=== PATIENT | male | born 1965 ===

== ENCOUNTER 2017-02-03 14:15 | Inpatient (IN) | payer OTHER ==
[2017-02-03 15:51] VITALS: BMI 28.3
[2017-02-03] MEDS ORDERED: Oxycodone/Acetaminophen 5/325 mg Tab PO PRN ×2 (21:13)
--- NOTE | 2017-02-03 21:23 | CP.PCM.HP ---
History of Present Illness - History of Present Illness History of Present Illness: CC: s/p CABG, CVA HPI: This is a 51 y/o male with MHx signicant for HTN, HLD, DM2, and now CAD/ CABG and CVA. Patient is transferred here from [facility] for rehab post CABG. Per chart from [facility] and [facility], patient had initially been admitted to [facility] on 01/22/17 with c/o chest pain. He was found to have elevated troponins and was transferred to the ICU with diagnosis of NSTEMI; he was then transferred to [facility] for further mgmt. He had cardiac cath on 01/24/17, which showed 2V CA and depressed LV function, he had a balloon pump inserted at that time and then on 01/26/2017, he had CABG. 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 Currently patient has no c/c. States pain is well-controlled. Denies CP/SOB; denies f/c/n/v/d. Denies fever, cough. ROS: 14 systems reviewed, negative other than HPI MHx: HTN, HLD, DM2, CAD/CABG and R MCA CVA SHx: L wrist surgery distant past, cardiac cath and then CABG as above; pancreatitis in distant past Allergies: Shrimp, NKDA Medications: as per medication list Social Hx: lives with family, smoker in the past, no significant EtOH Family Hx: [place] and CAD in father, brother with pancreatic Ca Surrogate: , info on chart Present on Admission - Present on Admission Any Indicators Present on Admission: No Past Patient History - Past Social History Smoking Status: Never Smoked - CARDIAC Hx Hypertension: Yes - MUSCULOSKELETAL/RHEUMATOLOGICAL Hx Falls: No - PSYCHIATRIC Hx Substance Use: No - SURGICAL HISTORY Hx Surgeries: No Meds Allergies/Adverse Reactions: Allergies Allergy/AdvReac Type Severity Reaction Status Date / Time shrimp Allergy Verified 01/22/17 09:42 Physical Exam - Constitutional Appears: No Acute Distress - Head Exam Head Exam: ATRAUMATIC, NORMOCEPHALIC - Eye Exam Eye Exam: EOMI, PERRL - ENT Exam ENT Exam: Mucous Membranes Moist - Neck Exam Neck exam: Positive for: Full Rom - Respiratory Exam Respiratory Exam: Clear to Auscultation Bilateral, NORMAL BREATHING PATTERN Additional comments: midline sternotomy scar - Cardiovascular Exam Cardiovascular Exam: REGULAR RHYTHM, +S1, +S2 - GI/Abdominal Exam GI & Abdominal Exam: Normal Bowel Sounds, Soft - Extremities Exam Extremities exam: Positive for: full ROM, normal inspection Additional comments: b/l LE with incisions for vein harvest; wounds c/d/i - Neurological Exam Neurological exam: Alert, CN II-XII Intact, Oriented x3 Additional comments: LUE with some weakness vs R, still 4/5 strength - Psychiatric Exam Psychiatric exam: Normal Affect, Normal Mood - Skin Skin Exam: Dry, Warm Assessment & Plan (1) CAD (coronary artery disease) Assessment and Plan: 51 y/o male admitted for rehab s/p NSTEMI and CABG, and a R CVA. 1) CAD/NSTEMI/s/p CABG -Continue ASA, Plavix -Continue Statin at 80 mg daily for 21 days, then switch to 40 mg -Cont metoprolol and amiodarone; d/c amio after 02/03 (tomorrow) -EKG for AM 2) HTN -- Metoprolol as above 3) DM2 -DM diet -Accucheck qid ACHS -Levemir 12 BID -SSI 4) DVT PPx -- SQH 5) Protonix for GI PPx presumably, re-eval need for this medication Status: Acute (2) S/P CABG (coronary artery bypass graft) Status: Acute (3) DM2 (diabetes mellitus, type 2) Status: Acute (4) DVT prophylaxis Status: Acute (5) HTN (hypertension) Status: Acute
[2017-02-03] MEDS ORDERED: Insulin Detemir 100 Units/ml Inj SC SCH (22:45)
[2017-02-03] MEDS: Insulin Lispro (humaLOG) 100 Units/ml Inj SC SCH (22:50)
[2017-02-04] MEDS: Albuterol-Ipratrop 3 mg / 0.5 (3 ml) UD IH SCH ×7 (04:36→23:21)
[2017-02-04] MEDS: Insulin Lispro (humaLOG) 100 Units/ml Inj SC SCH ×4 (06:37→21:44)
[2017-02-04 07:06] LABS: HEMATOCRIT 36.9 % (35.0-51.0); MEAN CELL VOLUME 86.7 fl (80.0-94.0); MEAN CORPUSCULAR HEMOGLOBIN 29.1 pg (27.0-31.0); MEAN CORPUSCULAR HGB CONC 33.6 g/dL (33.0-37.0)
[2017-02-04 07:10] LABS: BLOOD UREA NITROGEN 37 mg/dl (9-20); CALCIUM 8.9 mg/dL (8.4-10.2); CARBON DIOXIDE 22 mmol/L (22-30); CHLORIDE 107 mmol/L (98-107); GFR AFRICAN-AMERICAN > 60; GLUCOSE,RANDOM 136 mg/dL (75-110); POTASSIUM 4.1 MMOL/L (3.6-5.0); SODIUM 140 mmol/l (132-148)
[2017-02-04] MEDS: Insulin Detemir 100 Units/ml Inj SC SCH ×2 (09:16→21:58)
[2017-02-04] MEDS: Multivitamin With Minerals Tab PO SCH (09:18)
[2017-02-04] MEDS: Pantoprazole 40 mg EC Tab PO SCH (09:18)
--- NOTE | 2017-02-04 12:52 | CP.PCM.PN ---
Subjective - Date & Time of Evaluation Date of Evaluation: 02/04/17 Time of Evaluation: 11:30 - Subjective Subjective: Patient seen and examined . Sitting in chair in NAD. Felling well. Participated with PT. Denies any CP, SOB, palpitations.Hemodynamically stable, afebrile Objective - Vital Signs/Intake and Output Vital Signs (last 24 hours): Temp Pulse Resp BP Pulse Ox 96.6 F L 88 20 120/69 99 02/04/17 08:06 02/04/17 09:16 02/04/17 08:06 02/04/17 09:16 02/04/17 08:06 - Medications Medications: Current Medications Albuterol/Ipratropium (Duoneb 3 Mg/0.5 Mg (3 Ml) Ud) 3 ml IH RQ4 [facility] Last Admin: 02/04/17 04:36 Dose: 3 ml Aspirin (Ecotrin) 81 mg PO DAILY [facility] Last Admin: 02/04/17 09:16 Dose: 81 mg Atorvastatin Calcium (Lipitor) 80 mg PO HS [facility] Last Admin: 02/03/17 22:50 Dose: 80 mg Bisacodyl (Dulcolax) 10 mg RC DAILY PRN PRN Reason: Constipation Clopidogrel Bisulfate (Plavix) 75 mg PO DAILY [facility] Last Admin: 02/04/17 09:18 Dose: 75 mg Docusate Sodium (Colace) 100 mg PO BID [facility] Last Admin: 02/04/17 09:15 Dose: 100 mg Heparin Sodium (Porcine) (Heparin) 5,000 units SC Q8 [facility] PRN Reason: Protocol Last Admin: 02/04/17 06:38 Dose: 5,000 units Insulin Detemir (Levemir) 15 units SC Q12 [facility] Last Admin: 02/04/17 09:16 Dose: 15 units Insulin Human Lispro (Humalog) 0 units SC ACHS [facility] PRN Reason: Protocol Last Admin: 02/04/17 11:30 Dose: 3 units Metoprolol Tartrate (Lopressor) 25 mg PO Q12 [facility] Last Admin: 02/04/17 09:16 Dose: 25 mg Multivitamins/Minerals (Therapeutic-M Tab) 1 tab PO DAILY [facility] Last Admin: 02/04/17 09:18 Dose: 1 tab Oxycodone/Acetaminophen (Percocet 5/325 Mg Tab) 1 tab PO Q4 PRN PRN Reason: Pain, moderate (4-7) Stop: 02/06/17 21:14 Last Admin: 02/04/17 01:03 Dose: 1 tab Oxycodone/Acetaminophen (Percocet 5/325 Mg Tab) 2 tab PO Q4 PRN PRN Reason: Pain, severe (8-10) Stop: 02/06/17 21:14 Pantoprazole Sodium (Protonix Ec Tab) 40 mg PO DAILY [facility] Last Admin: 02/04/17 09:18 Dose: 40 mg - Labs Labs: 02/04/17 05:15 02/04/17 05:15 - Constitutional Appears: Non-toxic, No Acute Distress - Head Exam Head Exam: ATRAUMATIC, NORMAL INSPECTION, NORMOCEPHALIC - Eye Exam Eye Exam: EOMI, Normal appearance, PERRL Pupil Exam: NORMAL ACCOMODATION - ENT Exam ENT Exam: Mucous Membranes Moist, Normal Exam - Neck Exam Neck Exam: Full ROM, Normal Inspection - Respiratory Exam Respiratory Exam: Clear to Ausculation Bilateral, NORMAL BREATHING PATTERN. absent: Rales, Rhonchi, Wheezes - Cardiovascular Exam Cardiovascular Exam: REGULAR RHYTHM, RRR. absent: JVD - GI/Abdominal Exam GI & Abdominal Exam: Soft, Normal Bowel Sounds. absent: Distended, Guarding, Tenderness, Rebound - Rectal Exam Rectal Exam: Deferred - Extremities Exam Extremities Exam: Full ROM, Normal Capillary Refill, Normal Inspection. absent : Calf Tenderness, Pedal Edema - Back Exam Back Exam: NORMAL INSPECTION - Neurological Exam Neurological Exam: Alert, Awake, CN II-XII Intact, Oriented x3 - Psychiatric Exam Psychiatric exam: Normal Affect, Normal Mood - Skin Skin Exam: Dry, Intact, Normal Color, Warm Assessment and Plan - Assessment and Plan (Free Text) Assessment: 51 y/o male admitted for rehab s/p NSTEMI and CABG, and a R CVA. 1. CAD/NSTEMI/s/p CABG stable Continue ASA, Plavix Continue Statin at 80 mg daily for 21 days, then switch to 40 mg Cont metoprolol d/c amiodarone after 3 days as per CTS 2. HTN Metoprolol as above 3. DM2 DM diet Accucheck qid ACHS Levemir 12 BID SSI 4. DVT PPx SQ heparin 5. GI PPx protonix
--- NOTE | 2017-02-04 15:06 | CP.PCM.PN ---
Subjective - Date & Time of Evaluation Date of Evaluation: 02/04/17 Time of Evaluation: 08:30 - Subjective Subjective: no acute complaints at present Objective - Vital Signs/Intake and Output Vital Signs (last 24 hours): Temp Pulse Resp BP Pulse Ox 96.6 F L 88 20 120/69 99 02/04/17 08:06 02/04/17 09:16 02/04/17 08:06 02/04/17 09:16 02/04/17 08:06 - Medications Medications: Current Medications Albuterol/Ipratropium (Duoneb 3 Mg/0.5 Mg (3 Ml) Ud) 3 ml IH RQ4 [facility] Last Admin: 02/04/17 04:36 Dose: 3 ml Aspirin (Ecotrin) 81 mg PO DAILY [facility]S AT [facility] Last Admin: 02/04/17 09:16 Dose: 81 mg Atorvastatin Calcium (Lipitor) 80 mg PO HS [facility] 234 B[facility]S AT [facility] Last Admin: 02/03/17 22:50 Dose: 80 mg Bisacodyl (Dulcolax) 10 mg RC DAILY PRN PRN Reason: Constipation Clopidogrel Bisulfate (Plavix) 75 mg PO DAILY [facility] 234 BEDS AT [facility] Last Admin: 02/04/17 09:18 Dose: 75 mg Docusate Sodium (Colace) 100 mg PO BID [facility] 234 BEDS AT [facility] Last Admin: 02/04/17 09:15 Dose: 100 mg Heparin Sodium (Porcine) (Heparin) 5,000 units SC Q8 [facility] 234 BEDS AT [facility] PRN Reason: Protocol Last Admin: 02/04/17 06:38 Dose: 5,000 units Insulin Detemir (Levemir) 15 units SC Q12 [facility] 234 BEDS AT [facility] Last Admin: 02/04/17 09:16 Dose: 15 units Insulin Human Lispro (Humalog) 0 units SC ACHS [facility] 234 BEDS AT [facility] PRN Reason: Protocol Last Admin: 02/04/17 11:30 Dose: 3 units Metoprolol Tartrate (Lopressor) 25 mg PO Q12 [facility] 234 BEDS AT [facility] Last Admin: 02/04/17 09:16 Dose: 25 mg Multivitamins/Minerals (Therapeutic-M Tab) 1 tab PO DAILY [facility] 234 BEDS AT [facility] Last Admin: 02/04/17 09:18 Dose: 1 tab Oxycodone/Acetaminophen (Percocet 5/325 Mg Tab) 1 tab PO Q4 PRN PRN Reason: Pain, moderate (4-7) Stop: 02/06/17 21:14 Last Admin: 02/04/17 01:03 Dose: 1 tab Oxycodone/Acetaminophen (Percocet 5/325 Mg Tab) 2 tab PO Q4 PRN PRN Reason: Pain, severe (8-10) Stop: 02/06/17 21:14 Pantoprazole Sodium (Protonix Ec Tab) 40 mg PO DAILY [facility] Last Admin: 02/04/17 09:18 Dose: 40 mg - Labs Labs: 02/04/17 05:15 02/04/17 05:15 - Head Exam Head Exam: ATRAUMATIC, NORMAL INSPECTION, NORMOCEPHALIC - Eye Exam Eye Exam: EOMI, Normal appearance, PERRL Pupil Exam: NORMAL ACCOMODATION - ENT Exam ENT Exam: Mucous Membranes Moist, Normal Exam - Neck Exam Neck Exam: Full ROM, Normal Inspection - Respiratory Exam Respiratory Exam: NORMAL BREATHING PATTERN - Cardiovascular Exam Cardiovascular Exam: REGULAR RHYTHM - GI/Abdominal Exam GI & Abdominal Exam: Normal Bowel Sounds - Rectal Exam Rectal Exam: NORMAL INSPECTION - Exam External exam: NORMAL EXTERNAL EXAM - Extremities Exam Extremities Exam: Full ROM, Normal Capillary Refill - Back Exam Back Exam: NORMAL INSPECTION - Neurological Exam Neurological Exam: Alert, Awake Neuro motor strength exam: Left Upper Extremity: 3, Right Upper Extremity: 3, Left Lower Extremity: 3, Right Lower Extremity: 3 - Psychiatric Exam Psychiatric exam: Normal Affect, Normal Mood - Skin Skin Exam: Dry, Intact Assessment and Plan (1) CAD (coronary artery disease) Status: Acute (2) DM2 (diabetes mellitus, type 2) Status: Acute (3) DVT prophylaxis Status: Acute (4) HTN (hypertension) Status: Acute (5) S/P CABG (coronary artery bypass graft) Assessment & Plan: plan for pt, ot, rec therapy and speech therapy Status: Acute (6) Chest pain Status: Acute (7) Hypertension, uncontrolled Status: Acute (8) Non-ST elevation [place] (NSTEMI) Status: Acute
--- NOTE | 2017-02-04 15:12 | PCM.OPOC ---
Physiatry Overall Plan of Care - Overall Plan of Care Estimated Length of Stay in Weeks: 3 Rehab Impairment: Mobility, Gait, Cognition, Speech, Balance, Coordination Etiologic Diagnosis: Cerebrovascular Accident - Anticipated Interventions Physical Therapy:: Yes Occupational Therapy:: Yes Speech Therapy:: Yes Recreational Therapy:: Yes - Therapy Goals Bed Mobility: Independent Ambulation: Independent Functional Positional Changes:: Independent - Discharge Plan Identification of Barriers to Discharge: Home Situation Discharge Destination: Home
--- NOTE | 2017-02-04 15:29 | CP.PCM.CON ---
History of Present Illness - History of Present Illness History of Present Illness: 51 year old malecame to [facility] with left chest pain, NC, Cabg, STroke Review of Systems - Cardiovascular Cardiovascular: Chest Pain, Lightheadedness Past Patient History - Past Medical History & Family History Past Medical History?: Yes - Past Social History Smoking Status: Former Smoker - CARDIAC Hx Hypercholesterolemia: Yes Hx Hypertension: Yes Other/Comment: NSTEMI - ENDOCRINE/METABOLIC Hx Diabetes Mellitus Type 1: Yes - MUSCULOSKELETAL/RHEUMATOLOGICAL Hx Falls: No - GASTROINTESTINAL Hx Pancreatitis: Yes - PSYCHIATRIC Hx Substance Use: No - SURGICAL HISTORY Hx Surgeries: No Hx Cardiac Catheterization: Yes Hx Coronary Artery Bypass Graft: Yes Other/Comment: left wrist Sx - ANESTHESIA Hx Anesthesia: Yes Hx Anesthesia Reactions: No Meds Allergies/Adverse Reactions: Allergies Allergy/AdvReac Type Severity Reaction Status Date / Time shrimp Allergy RASH Verified 02/04/17 00:13 - Medications Medications: Current Medications Albuterol/Ipratropium (Duoneb 3 Mg/0.5 Mg (3 Ml) Ud) 3 ml IH RQ4 [facility] Last Admin: 02/04/17 04:36 Dose: 3 ml Aspirin (Ecotrin) 81 mg PO DAILY [facility] Last Admin: 02/04/17 09:16 Dose: 81 mg Atorvastatin Calcium (Lipitor) 80 mg PO HS [facility] Last Admin: 02/03/17 22:50 Dose: 80 mg Bisacodyl (Dulcolax) 10 mg RC DAILY PRN PRN Reason: Constipation Clopidogrel Bisulfate (Plavix) 75 mg PO DAILY [facility] Last Admin: 02/04/17 09:18 Dose: 75 mg Docusate Sodium (Colace) 100 mg PO BID [facility] Last Admin: 02/04/17 09:15 Dose: 100 mg Heparin Sodium (Porcine) (Heparin) 5,000 units SC Q8 [facility] PRN Reason: Protocol Last Admin: 02/04/17 06:38 Dose: 5,000 units Insulin Detemir (Levemir) 15 units SC Q12 [facility] Last Admin: 02/04/17 09:16 Dose: 15 units Insulin Human Lispro (Humalog) 0 units SC ACHS [facility] PRN Reason: Protocol Last Admin: 02/04/17 11:30 Dose: 3 units Metoprolol Tartrate (Lopressor) 25 mg PO Q12 [facility] Last Admin: 02/04/17 09:16 Dose: 25 mg Multivitamins/Minerals (Therapeutic-M Tab) 1 tab PO DAILY [facility] Last Admin: 02/04/17 09:18 Dose: 1 tab Oxycodone/Acetaminophen (Percocet 5/325 Mg Tab) 1 tab PO Q4 PRN PRN Reason: Pain, moderate (4-7) Stop: 02/06/17 21:14 Last Admin: 02/04/17 01:03 Dose: 1 tab Oxycodone/Acetaminophen (Percocet 5/325 Mg Tab) 2 tab PO Q4 PRN PRN Reason: Pain, severe (8-10) Stop: 02/06/17 21:14 Pantoprazole Sodium (Protonix Ec Tab) 40 mg PO DAILY [facility] Last Admin: 02/04/17 09:18 Dose: 40 mg Physical Exam - Head Exam Head Exam: ATRAUMATIC - Eye Exam Eye Exam: EOMI, Normal appearance, PERRL Pupil Exam: NORMAL ACCOMODATION - ENT Exam ENT Exam: Mucous Membranes Moist, Normal Exam - Neck Exam Neck exam: Positive for: Normal Inspection - Respiratory Exam Respiratory Exam: NORMAL BREATHING PATTERN - Cardiovascular Exam Cardiovascular Exam: REGULAR RHYTHM - GI/Abdominal Exam GI & Abdominal Exam: Normal Bowel Sounds - Rectal Exam Rectal Exam: NORMAL INSPECTION - Exam External exam: NORMAL EXTERNAL EXAM - Extremities Exam Extremities exam: Positive for: normal inspection - Back Exam Back exam: NORMAL INSPECTION - Neurological Exam Neurological exam: Alert - Psychiatric Exam Psychiatric exam: Normal Affect, Normal Mood Additional comments: with with generalized weakness, problem with strength, balance and coordination Results - Vital Signs Recent Vital Signs: Last Vital Signs Temp 96.6 F L 02/04/17 08:06 Pulse 88 02/04/17 09:16 Resp 20 02/04/17 08:06 BP 120/69 02/04/17 09:16 Pulse Ox 99 02/04/17 08:06 - Labs Result Diagrams: 02/04/17 05:15 02/04/17 05:15 Labs: Laboratory Results - last 24 hr 02/03/17 02/04/17 02/04/17 21:37 05:15 05:15 WBC 9.0 RBC 4.26 L Hgb 12.4 Hct 36.9 MCV 86.7 MCH 29.1 MCHC 33.6 RDW 14.0 Plt Count 356 Sodium 140 Potassium 4.1 Chloride 107 Carbon Dioxide 22 Anion Gap 15 BUN 37 H Creatinine 0.9 Est GFR ( Amer) > 60 Est GFR (Non-Af Amer) > 60 POC Glucose (mg/dL) 182 H Random Glucose 136 H Calcium 8.9 02/04/17 02/04/17 06:36 10:58 WBC RBC Hgb Hct MCV MCH MCHC RDW Plt Count Sodium Potassium Chloride Carbon Dioxide Anion Gap BUN Creatinine Est GFR ( Amer) Est GFR (Non-Af Amer) POC Glucose (mg/dL) 126 H 207 H Random Glucose Calcium Assessment & Plan (1) CAD (coronary artery disease) Status: Acute (2) DM2 (diabetes mellitus, type 2) Status: Acute (3) DVT prophylaxis Status: Acute (4) HTN (hypertension) Status: Acute (5) S/P CABG (coronary artery bypass graft) Assessment and Plan: also Diagnosis of stroke, plan for physical, occupational, rec, speech therapy for range of motion, strenghthening, transfers and gait training overall plan of care monitor skin, bowel, bladder Status: Acute (6) Chest pain Status: Acute (7) Hypertension, uncontrolled Status: Acute (8) Non-ST elevation NC (NSTEMI) Status: Acute
--- NOTE | 2017-02-04 17:41 | CARD ---
APPROVED REPORT EKG Measurement Heart [id number] <Conclusion> Normal sinus rhythm Moderate voltage criteria for LVH, may be normal variant Inferior infarct, age undetermined Anterior infarct, age undetermined ST & T wave abnormality, consider lateral ischemia Prolonged QT Abnormal ECG
[2017-02-05] MEDS: Albuterol-Ipratrop 3 mg / 0.5 (3 ml) UD IH SCH ×6 (04:25→23:33)
[2017-02-05] MEDS: Insulin Lispro (humaLOG) 100 Units/ml Inj SC SCH ×4 (07:03→22:27)
[2017-02-05] MEDS: Pantoprazole 40 mg EC Tab PO SCH (08:38)
[2017-02-05] MEDS: Multivitamin With Minerals Tab PO SCH (08:38)
[2017-02-05] MEDS: Insulin Detemir 100 Units/ml Inj SC SCH ×2 (08:39→22:05)
--- NOTE | 2017-02-05 21:24 | PN ---
DATE: PHYSIATRY PROGRESS NOTE SUBJECTIVE: The patient is a 51-year-old male admitted for acute inpatient rehab program. No acute complaints at present. PHYSICAL EXAMINATION: VITAL SIGNS: Stable. NECK: Supple. CHEST: Symmetrical. HEART: Sounds S1, S2. ABDOMEN: Area is benign. EXTREMITIES: No clubbing, cyanosis, or edema. MUSCULOSKELETAL: The patient's muscle strength, 3/5. NEUROLOGICAL: Also problems with balance, coordination, gait. IMPRESSION: Acute cerebrovascular accident, history of hypertension, myocardial infarction, diabetes. PLAN: For physical therapy, occupational therapy, recreational therapy, and speech therapy program. Work on coordination and balance. James Pierre MD
[2017-02-06] MEDS: Albuterol-Ipratrop 3 mg / 0.5 (3 ml) UD IH SCH ×6 (04:52→23:59)
[2017-02-06] MEDS: Insulin Lispro (humaLOG) 100 Units/ml Inj SC SCH ×3 (07:11→16:57)
[2017-02-06] MEDS: Insulin Detemir 100 Units/ml Inj SC SCH ×2 (08:56→21:47)
[2017-02-06] MEDS: Multivitamin With Minerals Tab PO SCH (08:58)
[2017-02-06] MEDS: Pantoprazole 40 mg EC Tab PO SCH (08:58)
[2017-02-07] MEDS: Albuterol-Ipratrop 3 mg / 0.5 (3 ml) UD IH SCH ×5 (04:13→19:10)
[2017-02-07] MEDS: Insulin Lispro (humaLOG) 100 Units/ml Inj SC SCH ×2 (07:34→15:58)
[2017-02-07] MEDS: Insulin Detemir 100 Units/ml Inj SC SCH ×3 (08:22→21:43)
[2017-02-07] MEDS: Multivitamin With Minerals Tab PO SCH (08:23)
[2017-02-07] MEDS: Pantoprazole 40 mg EC Tab PO SCH (08:23)
--- NOTE | 2017-02-07 12:07 | CP.PCM.PN ---
Subjective - Date & Time of Evaluation Date of Evaluation: 02/07/17 Time of Evaluation: 10:00 - Subjective Subjective: Patient was seen and examined at bedside. He is sitting in chair and is undergoing physical therapy. He is participating well. He has no complaints of chest pain, palpitations, or shortness of breath. The patient is hemodynamically stable and afebrile today. Objective - Vital Signs/Intake and Output Vital Signs (last 24 hours): Temp Pulse Resp BP Pulse Ox 97.2 F L 98 H 21 109/68 99 02/07/17 07:44 02/07/17 08:23 02/07/17 07:44 02/07/17 08:23 02/07/17 07:44 - Medications Medications: Current Medications Albuterol/Ipratropium (Duoneb 3 Mg/0.5 Mg (3 Ml) Ud) 3 ml IH RQ4 [facility] Last Admin: 02/07/17 11:29 Dose: 3 ml Amiodarone HCl (Cordarone) 200 mg PO DAILY [facility] Last Admin: 02/07/17 08:17 Dose: 200 mg Aspirin (Ecotrin) 81 mg PO DAILY [facility] Last Admin: 02/07/17 08:21 Dose: 81 mg Atorvastatin Calcium (Lipitor) 80 mg PO HS [facility] Last Admin: 02/06/17 21:31 Dose: 80 mg Bisacodyl (Dulcolax) 10 mg RC DAILY PRN PRN Reason: Constipation Clopidogrel Bisulfate (Plavix) 75 mg PO DAILY [facility] Last Admin: 02/07/17 08:23 Dose: 75 mg Docusate Sodium (Colace) 100 mg PO BID [facility] Last Admin: 02/07/17 08:17 Dose: 100 mg Heparin Sodium (Porcine) (Heparin) 5,000 units SC Q8 [facility] PRN Reason: Protocol Last Admin: 02/07/17 06:23 Dose: 5,000 units Insulin Detemir (Levemir) 15 units SC Q12 [facility] Last Admin: 02/07/17 08:22 Dose: 15 units Insulin Human Lispro (Humalog) 0 units SC 0630,1630 [facility] PRN Reason: Protocol Last Admin: 02/07/17 07:34 Dose: 2 units Metoprolol Tartrate (Lopressor) 25 mg PO Q12 [facility] Last Admin: 02/07/17 08:23 Dose: Not Given Multivitamins/Minerals (Therapeutic-M Tab) 1 tab PO DAILY [facility] Last Admin: 02/07/17 08:23 Dose: 1 tab Pantoprazole Sodium (Protonix Ec Tab) 40 mg PO DAILY [facility] Last Admin: 02/07/17 08:23 Dose: 40 mg - Labs Labs: 02/04/17 05:15 02/04/17 05:15 - Additional Findings Additional findings: Physical exam: Constitutional- cooperative, awake, alert. Sitting in chair, no apparent distress. Head- NCAT, PERRL Eye- PERRL, normal accommodation ENT- normal exam, MMM. Neck- normal inspection, supple, no JVD Respiratory- CTAB, no wheezes rales rhonchi Cardiovascular- RRR, +S1, +S2 no MRG GI/Abdominal- normal bowel sounds, soft, no mass, no hsm Skin- warm, dry Extremities Exam- normal capillary refill, normal inspection Neurological Exam- alert, stable gait Psych- normal mood, normal affect Assessment and Plan - Assessment and Plan (Free Text) Plan: Assessment and Plan Assessment: 51 y/o male admitted for rehab s/p NSTEMI and CABG, and a R CVA. 1. CAD/NSTEMI/s/p CABG stable Continue ASA, Plavix Continue Statin at 80 mg daily for 21 days total, then switch to 40 mg Continue metoprolol discontinued Amiodarone today as per recommendations by CTS 2. HTN Metoprolol as above 3. DM2 DM diet Accucheck qid ACHS Levemir 12 BID SSI 4. DVT PPx SQ heparin 5. GI PPx protonix
--- NOTE | 2017-02-07 14:35 | CP.PCM.PN ---
Subjective - Date & Time of Evaluation Date of Evaluation: 02/07/17 Time of Evaluation: 11:00 - Subjective Subjective: patinet with no complaints of any pain Objective - Vital Signs/Intake and Output Vital Signs (last 24 hours): Temp Pulse Resp BP Pulse Ox 97.2 F L 95 H 21 123/72 99 02/07/17 07:44 02/07/17 09:26 02/07/17 07:44 02/07/17 09:26 02/07/17 07:44 - Medications Medications: Current Medications Albuterol/Ipratropium (Duoneb 3 Mg/0.5 Mg (3 Ml) Ud) 3 ml IH RQ4 [facility] Last Admin: 02/07/17 11:29 Dose: 3 ml Aspirin (Ecotrin) 81 mg PO DAILY [facility] Last Admin: 02/07/17 08:21 Dose: 81 mg Atorvastatin Calcium (Lipitor) 80 mg PO HS [facility] Last Admin: 02/06/17 21:31 Dose: 80 mg Bisacodyl (Dulcolax) 10 mg RC DAILY PRN PRN Reason: Constipation Clopidogrel Bisulfate (Plavix) 75 mg PO DAILY [facility] Last Admin: 02/07/17 08:23 Dose: 75 mg Docusate Sodium (Colace) 100 mg PO BID [facility] Last Admin: 02/07/17 08:17 Dose: 100 mg Heparin Sodium (Porcine) (Heparin) 5,000 units SC Q8 [facility] PRN Reason: Protocol Last Admin: 02/07/17 06:23 Dose: 5,000 units Insulin Detemir (Levemir) 15 units SC Q12 [facility] Last Admin: 02/07/17 08:22 Dose: 15 units Insulin Human Lispro (Humalog) 0 units SC 0630,1630 [facility] PRN Reason: Protocol Last Admin: 02/07/17 07:34 Dose: 2 units Metoprolol Tartrate (Lopressor) 25 mg PO Q12 [facility] Last Admin: 02/07/17 08:23 Dose: Not Given Multivitamins/Minerals (Therapeutic-M Tab) 1 tab PO DAILY [facility] Last Admin: 02/07/17 08:23 Dose: 1 tab Pantoprazole Sodium (Protonix Ec Tab) 40 mg PO DAILY [facility] Last Admin: 02/07/17 08:23 Dose: 40 mg - Labs Labs: 02/04/17 05:15 02/04/17 05:15 - Head Exam Head Exam: ATRAUMATIC, NORMAL INSPECTION, NORMOCEPHALIC - Eye Exam Eye Exam: EOMI, Normal appearance, PERRL Pupil Exam: NORMAL ACCOMODATION - ENT Exam ENT Exam: Mucous Membranes Moist, Normal Exam - Neck Exam Neck Exam: Normal Inspection - Respiratory Exam Respiratory Exam: NORMAL BREATHING PATTERN - Cardiovascular Exam Cardiovascular Exam: REGULAR RHYTHM - GI/Abdominal Exam GI & Abdominal Exam: Normal Bowel Sounds - Rectal Exam Rectal Exam: NORMAL INSPECTION - Exam External exam: NORMAL EXTERNAL EXAM - Extremities Exam Extremities Exam: Full ROM, Normal Capillary Refill, Normal Inspection - Back Exam Back Exam: NORMAL INSPECTION - Neurological Exam Neurological Exam: Alert, Awake Neuro motor strength exam: Left Upper Extremity: 3, Right Upper Extremity: 3, Left Lower Extremity: 3, Right Lower Extremity: 3 - Psychiatric Exam Psychiatric exam: Normal Affect, Normal Mood - Skin Skin Exam: Dry, Intact Assessment and Plan (1) CAD (coronary artery disease) Status: Acute (2) DM2 (diabetes mellitus, type 2) Status: Acute (3) DVT prophylaxis Status: Acute (4) HTN (hypertension) Status: Acute (5) S/P CABG (coronary artery bypass graft) Status: Acute (6) Chest pain Status: Acute (7) Hypertension, uncontrolled Status: Acute (8) Non-ST elevation [place] (NSTEMI) Assessment & Plan: plan for pt, ot, rec therapy fo rteam conference monitor savanna and breathing PRN. Status: Acute
[2017-02-07] MEDS ORDERED: Oxycodone/Acetaminophen 5/325 mg Tab PO PRN ×2 (14:50)
[2017-02-08] MEDS: Albuterol-Ipratrop 3 mg / 0.5 (3 ml) UD IH SCH ×7 (05:08→23:46)
[2017-02-08] MEDS: Insulin Lispro (humaLOG) 100 Units/ml Inj SC SCH ×2 (06:42→21:38)
[2017-02-08] MEDS: Insulin Detemir 100 Units/ml Inj SC SCH ×2 (08:20→21:41)
[2017-02-08] MEDS: Pantoprazole 40 mg EC Tab PO SCH (08:21)
[2017-02-08] MEDS: Multivitamin With Minerals Tab PO SCH (08:21)
[2017-02-09] MEDS: Albuterol-Ipratrop 3 mg / 0.5 (3 ml) UD IH SCH ×6 (04:16→23:42)
[2017-02-09] MEDS: Insulin Lispro (humaLOG) 100 Units/ml Inj SC SCH ×2 (06:56→21:22)
[2017-02-09] MEDS: Insulin Detemir 100 Units/ml Inj SC SCH ×2 (08:25→21:29)
[2017-02-09] MEDS: Pantoprazole 40 mg EC Tab PO SCH (08:25)
[2017-02-09] MEDS: Multivitamin With Minerals Tab PO SCH (08:25)
--- NOTE | 2017-02-09 08:56 | PSY.TMCNF ---
Nursing - Vital Signs Vital Signs (Last 8 hours): Vital Signs 02/09/17 02/09/17 02/09/17 08:25 08:36 08:45 Temperature 97.8 F Pulse Rate 99 H 99 H 99 H Respiratory 19 Rate Blood Pressure 104/59 L 104/59 L 104/59 L O2 Sat by Pulse 99 Oximetry Pain: 0 - Precautions: Precautions: Fall Prevention, Cardiac/Pulmonary - Medications/Other Issues Comment: -Bilateral inner leg savanna is post-op day 14. -Percocet 1 or 2 tabs for pain. Pt has not complained of pain. - Consults Comment: Dr. [facility] - Physiatry - Skin Incision Site: mid chest incision line; bilateral inner leg Incision: Healing Well Incision Line Treatment: JILL. - Toileting Toileting: Contact Guard - Bladder Management Bladder Pattern: Normal Voiding Method: Urinal Bladder Management: Modified Independent - Bowel Management Bowel Pattern: Normal Bowel Management: Contact Guard - Transfers Transfers: Contact Guard - ADL's ADL's: Contact Guard - Pain Management Comments: -Percocet 1 or 2 tabs for pain. Pt has not complained of pain. - Patient/Family Teaching Comments: Safety precautions. Cardiac precautions. Medication Regimen. Wound care - Goals/Time Frame Comments: -As per neuro (Dr. Carrasquillo), keep SBP 130-140s. -Maintain safety and cardiac precautions. -Until next team conference or discharge. - Provider Provider: Dariana Hutchins RN Physical Therapy - Bed Mobility Bed Mobility: Verbal Cues, Contact Guard Comment: constant cues to adhere for spinal precautions - Transfers Sit to Stand: Supervision - Ambulation Level of Assistance: Supervision Distance (ft.): 250 Assistive Devices: Single point cane - Stair Negotiation Stairs: Level of Assistance: Supervision Number of Stairs: 2 Stairs: Assistive Devices: Left Handrail, Right Handrail - Standing Balance Static Stand: Supervision Dynamic Stand: Contact Guard Assist - Pain Pain (assessed during therapy session): 0 Comment: pt denies pain - Insight/Carryover Insight/Carryover: Fair - Patient/Family Education Comment: role of OT/rehab, sternal precautions, energy conservation, breathing techniques, compensatory strategies for ADLs and ADL txfers, DME - Assessment/Plan Assessment: Pt requires continued OT services to maximize independence with ADLs , IADLs and functional transfers in order to return safely home - Goals Timeframe: 2 weeks Goals: MOD I ADLs. MOD I ADL txfers. MOD I light IADLs - Provider License Number: [id number] Occupational Therapy - Arousal/Attention/Orientation Level of Consciousness: Awake, Alert - ADL/IADL Self Feeding: Modified Independent Grooming: Supervision, Set-up Help Dressing-Upper Extremity: Verbal Cues, Set-up Help, Minimal Assistance Dressing-Lower Extremity: Verbal Cues, Set-up Help, Minimal Assistance - Sitting Balance Static Sitting: Independent with upper extremity support Dynamic Sitting: Reaches across midline, Reaches out of base of support, Reaches within base of support, Requires supervision Comment: unsupported @ edge of bed - Transfers Wheelchair to Bed Transfers: Supervision, Verbal Cues, Set-up Help Toilet Transfers: Supervision, Verbal Cues, Set-up Help - Upper Extremity Status Right Upper Extremity Comment: ROM WFL, MMT 4+/5 Left Upper Extremity Comment: ROM WFL, MMT 4/5 - Pain Pain (assessed during therapy session): 0 Comment: pt denies pain - Insight/Carryover Insight/Carryover: Fair - Patient/Family Education Comment: role of OT/rehab, sternal precautions, energy conservation, breathing techniques, compensatory strategies for ADLs and ADL txfers, DME - Assessment/Plan Assessment: Pt requires continued OT services to maximize independence with ADLs , IADLs and functional transfers in order to return safely home - Goals Timeframe: 2 weeks Goals: MOD I ADLs. MOD I ADL txfers. MOD I light IADLs - Provider Therapist: Cristina Arthur License Number: [id number] Speech Therapy - Consult Information Patient on Program: Yes Medical Diagnosis: CVA Treatment Diagnosis: -mild cognitive deficits. -mild dysarthria - Assessment Problem Solving Impairment: Mild Memory Impairment: Mild Speech/Articulation Impairment: Mild - Plan Assessment: Pt requires continued OT services to maximize independence with ADLs , IADLs and functional transfers in order to return safely home - Provider Therapist: Hannah Jeff License Number: [id number] Recreational Therapy - Participation Participation: Monitors His/Her Own Leisure Time - Attendance Attendance: Daily - Activities Leisure Activities: Television - Socialization Level of Socialization: Initiates/interacts freely with care givers and peer - Assessment Assessment/Plan: Pt requires continued OT services to maximize independence with ADLs, IADLs and functional transfers in order to return safely home - Provider Therapist: Dorys Greco, [employer] #[id number] Nutrition - Current Diet Current Diet/ Supplement/ Feedings: Moderate consistent CHO low fat/low cholesterol diet - Appetite Percent Meal Consumed: 75-100% - Comments Comments: Safety precautions. Cardiac precautions. Medication Regimen. Wound care - Assessment/Goals/Time Frame Assessment/Goals/Time Frame: -Bilateral inner leg savanna is post-op day 14. - Percocet 1 or 2 tabs for pain. Pt has not complained of pain. - Provider Provider: Marilia Fleming RD Case Management - Discharge Plan Discharge Plan: Home with significant other/family Rehabilitation Plan - Treatment Plan Treatment Plan: Physical Therapy, Occupational Therapy, Speech, Dietary, Patient /Family Education - Recommendation Recommendation: Physical Therapy, Occupational Therapy, Speech, Dietary, Patient /Family Education - Discharge Plan Discharge to: Home
--- NOTE | 2017-02-09 12:08 | CP.PCM.PN ---
Subjective - Date & Time of Evaluation Date of Evaluation: 02/09/17 Time of Evaluation: 13:00 - Subjective Subjective: Patient seen and examined bedside. Feeling good. Participating with PT. Hemodynamically stable, afebrile. Objective - Vital Signs/Intake and Output Vital Signs (last 24 hours): Temp Pulse Resp BP Pulse Ox 97.8 F 99 H 19 104/59 L 99 02/09/17 08:45 02/09/17 08:45 02/09/17 08:45 02/09/17 08:45 02/09/17 08:45 - Medications Medications: Current Medications Albuterol/Ipratropium (Duoneb 3 Mg/0.5 Mg (3 Ml) Ud) 3 ml IH RQ4 [facility] Last Admin: 02/09/17 11:15 Dose: 3 ml Aspirin (Ecotrin) 81 mg PO DAILY [facility] Last Admin: 02/09/17 08:25 Dose: 81 mg Atorvastatin Calcium (Lipitor) 80 mg PO HS [facility] Last Admin: 02/08/17 21:32 Dose: 80 mg Bisacodyl (Dulcolax) 10 mg RC DAILY PRN PRN Reason: Constipation Clopidogrel Bisulfate (Plavix) 75 mg PO DAILY [facility] Last Admin: 02/09/17 08:25 Dose: 75 mg Docusate Sodium (Colace) 100 mg PO BID [facility] Last Admin: 02/09/17 08:25 Dose: 100 mg Heparin Sodium (Porcine) (Heparin) 5,000 units SC Q8 [facility] PRN Reason: Protocol Last Admin: 02/09/17 05:57 Dose: 5,000 units Insulin Detemir (Levemir) 15 units SC Q12 [facility] Last Admin: 02/09/17 08:25 Dose: 15 units Insulin Human Lispro (Humalog) 0 units SC 0630,2100 [facility] PRN Reason: Protocol Last Admin: 02/09/17 06:56 Dose: Not Given Metoprolol Tartrate (Lopressor) 25 mg PO Q12 [facility] Last Admin: 02/09/17 08:25 Dose: Not Given Multivitamins/Minerals (Therapeutic-M Tab) 1 tab PO DAILY [facility] Last Admin: 02/09/17 08:25 Dose: 1 tab Oxycodone/Acetaminophen (Percocet 5/325 Mg Tab) 1 tab PO Q4 PRN PRN Reason: Pain, moderate (4-7) Stop: 02/10/17 14:51 Oxycodone/Acetaminophen (Percocet 5/325 Mg Tab) 2 tab PO Q4 PRN PRN Reason: Pain, severe (8-10) Stop: 02/10/17 14:51 Pantoprazole Sodium (Protonix Ec Tab) 40 mg PO DAILY [facility] Last Admin: 02/09/17 08:25 Dose: 40 mg - Labs Labs: 02/04/17 05:15 02/04/17 05:15 - Constitutional Appears: Well, Non-toxic, No Acute Distress - Head Exam Head Exam: ATRAUMATIC, NORMAL INSPECTION, NORMOCEPHALIC - Eye Exam Eye Exam: EOMI, Normal appearance, PERRL Pupil Exam: NORMAL ACCOMODATION - ENT Exam ENT Exam: Mucous Membranes Moist, Normal Exam - Neck Exam Neck Exam: Full ROM, Normal Inspection - Respiratory Exam Respiratory Exam: Clear to Ausculation Bilateral, NORMAL BREATHING PATTERN. absent: Rales, Rhonchi, Wheezes - Cardiovascular Exam Cardiovascular Exam: REGULAR RHYTHM, RRR, +S1, +S2. absent: JVD Additional comments: midline chest surgical incision healing well - GI/Abdominal Exam GI & Abdominal Exam: Soft, Normal Bowel Sounds. absent: Distended, Tenderness, Rebound - Rectal Exam Rectal Exam: Deferred - Extremities Exam Extremities Exam: Normal Capillary Refill. absent: Calf Tenderness, Pedal Edema Additional comments: bilateral lower extremity upper medial part surgical incision with savanna in place , intact - Back Exam Back Exam: NORMAL INSPECTION - Neurological Exam Neurological Exam: Alert, Awake, CN II-XII Intact, Oriented x3 - Psychiatric Exam Psychiatric exam: Normal Affect, Normal Mood - Skin Skin Exam: Dry, Intact, Normal Color, Warm Assessment and Plan - Assessment and Plan (Free Text) Assessment: 51 y/o male admitted for rehab s/p NSTEMI and CABG, and R CVA. 1. CAD/NSTEMI/s/p CABG stable Continue ASA, Plavix,metoprolol Continue Statin at 80 mg daily for 21 days total, then switch to 40 mg discontinued Amiodarone as per recommendations by CTS 2. HTN Metoprolol as above 3. DM2 DM diet Accucheck qid ACHS Levemir 15 units SQ BID [facility] 4. CVA continue PT/OT ASa, statin, BP control 5. DVT PPx SQ heparin 6. GI PPx protonix
--- NOTE | 2017-02-09 12:19 | PN ---
DATE: PHYSIATRY PROGRESS NOTE SUBJECTIVE: Patient is feeling fine. No acute complaints at present. PHYSICAL EXAMINATION: VITAL SIGNS: Stable. NECK: Supple. CHEST: Symmetrical. HEART: Sounds S1 and S2. ABDOMEN: Area is benign. EXTREMITIES: No clubbing, cyanosis, or edema. IMPRESSION: Acute cerebrovascular accident, hypertension, diabetes; status post team conference. Discharge date for Tuesday. Discussed with the patient. [place] healing in both legs. Surgeon further contacted, patient to get the savanna removed on Tuesday at the surgeon's office. James MD Gabby
[2017-02-10] MEDS: Albuterol-Ipratrop 3 mg / 0.5 (3 ml) UD IH SCH ×6 (05:07→23:07)
[2017-02-10] MEDS: Insulin Lispro (humaLOG) 100 Units/ml Inj SC SCH ×2 (06:05→21:03)
[2017-02-10] MEDS: Insulin Detemir 100 Units/ml Inj SC SCH ×2 (08:46→21:15)
[2017-02-10] MEDS: Pantoprazole 40 mg EC Tab PO SCH (08:47)
[2017-02-10] MEDS: Multivitamin With Minerals Tab PO SCH (08:47)
[2017-02-11] MEDS: Albuterol-Ipratrop 3 mg / 0.5 (3 ml) UD IH SCH ×6 (04:48→23:50)
[2017-02-11] MEDS: Insulin Lispro (humaLOG) 100 Units/ml Inj SC SCH ×2 (06:21→21:25)
[2017-02-11] MEDS ORDERED: Oxycodone/Acetaminophen 5/325 mg Tab PO PRN ×2 (06:56)
[2017-02-11] MEDS: Multivitamin With Minerals Tab PO SCH (08:04)
[2017-02-11] MEDS: Pantoprazole 40 mg EC Tab PO SCH (08:04)
[2017-02-11] MEDS: Insulin Detemir 100 Units/ml Inj SC SCH ×2 (08:05→21:35)
--- NOTE | 2017-02-11 10:18 | CP.PCM.PN ---
Subjective - Date & Time of Evaluation Date of Evaluation: 02/11/17 Time of Evaluation: 10:18 - Subjective Subjective: patient seen and examined at bedside status post CABG secondary to an STEMI, course complicated by right MCA CVA. Patient is doing well, tolerating physical therapy. Denies chest pain or dyspnea at rest or on exertion. Hemodynamically stable, no acute distress. Objective - Vital Signs/Intake and Output Vital Signs (last 24 hours): Temp Pulse Resp BP Pulse Ox 98.1 F 59 L 20 103/59 L 98 02/11/17 08:01 02/11/17 08:04 02/11/17 08:01 02/11/17 08:04 02/11/17 08:01 Physical exam: Constitutional- cooperative, awake, alert. Head- NCAT, PERRL Eye- PERRL, normal accommodation ENT- normal exam, MMM. Neck- normal inspection, supple, no JVD Respiratory- CTAB, no wheezes rales rhonchi Cardiovascular- RRR, +S1, +S2 no MRG GI/Abdominal- normal bowel sounds, soft, no mass, no hsm Skin- warm, dry Extremities Exam- normal capillary refill, normal inspection Neurological Exam- alert, stable gait Psych- normal mood, normal affect - Medications Medications: Current Medications Albuterol/Ipratropium (Duoneb 3 Mg/0.5 Mg (3 Ml) Ud) 3 ml IH RQ4 [facility] Last Admin: 02/11/17 07:33 Dose: Not Given Aspirin (Ecotrin) 81 mg PO DAILY [facility] Last Admin: 02/11/17 08:05 Dose: 81 mg Atorvastatin Calcium (Lipitor) 80 mg PO HS [facility] Last Admin: 02/10/17 21:02 Dose: 80 mg Bisacodyl (Dulcolax) 10 mg RC DAILY PRN PRN Reason: Constipation Clopidogrel Bisulfate (Plavix) 75 mg PO DAILY [facility] Last Admin: 02/11/17 08:04 Dose: 75 mg Docusate Sodium (Colace) 100 mg PO BID [facility] Last Admin: 02/11/17 08:05 Dose: 100 mg Heparin Sodium (Porcine) (Heparin) 5,000 units SC Q8 [facility] PRN Reason: Protocol Last Admin: 02/11/17 06:19 Dose: 5,000 units Insulin Detemir (Levemir) 15 units SC Q12 [facility] Last Admin: 02/11/17 08:05 Dose: 15 units Insulin Human Lispro (Humalog) 0 units SC 0630,2100 [facility] PRN Reason: Protocol Last Admin: 02/11/17 06:21 Dose: Not Given Metoprolol Tartrate (Lopressor) 25 mg PO Q12 [facility] Last Admin: 02/11/17 08:04 Dose: Not Given Multivitamins/Minerals (Therapeutic-M Tab) 1 tab PO DAILY [facility] Last Admin: 02/11/17 08:04 Dose: 1 tab Oxycodone/Acetaminophen (Percocet 5/325 Mg Tab) 2 tab PO Q4 PRN PRN Reason: Pain, severe (8-10) Stop: 02/14/17 06:57 Oxycodone/Acetaminophen (Percocet 5/325 Mg Tab) 1 tab PO Q4 PRN PRN Reason: Pain, moderate (4-7) Stop: 02/14/17 06:57 Pantoprazole Sodium (Protonix Ec Tab) 40 mg PO DAILY [facility] Last Admin: 02/11/17 08:04 Dose: 40 mg - Labs Labs: 02/04/17 05:15 02/04/17 05:15 Assessment and Plan - Assessment and Plan (Free Text) Plan: 51 y/o male with MHx signicant for HTN, HLD, DM2, and now CAD/CABG and CVA. Patient is transferred here from [facility] for rehab post CABG. Per chart from [facility] and [facility], patient had initially been admitted to [facility] on with c/o chest pain. He was found to have elevated troponins and was transferred to the ICU with diagnosis of NSTEMI; he was then transferred to [facility] for further mgmt. He had cardiac cath on 01/24/17, which showed 2V CA and depressed LV function, he had a balloon pump inserted at that time and then on 01/26/2017, he had CABG. 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 Patient admitted to acute rehab for further rehab needs for s/p CABG, NSTEMI, s/ p CVA 2/2 course complication. CAD/NSTEMI/s/p CABG stable Continue ASA, Plavix, metoprolol Continue Statin at 80 mg daily for 21 days total, then switch to 40 mg (DOA: , change date 02/24/17) discontinued Amiodarone as per recommendations by CTS CVA of [facility] continue PT/OT ASA, statin, BP control HTN Metoprolol as above DM2 DM diet Accucheck qid ACHS Levemir 15 units SQ BID [facility]SI DVT PPx SQ heparin GI PPx protonix to be discontinued on discharge
[2017-02-12] MEDS: Albuterol-Ipratrop 3 mg / 0.5 (3 ml) UD IH SCH ×6 (04:58→23:19)
[2017-02-12] MEDS: Insulin Lispro (humaLOG) 100 Units/ml Inj SC SCH ×2 (06:05→21:06)
[2017-02-12 07:39] LABS: HEMATOCRIT 35.4 % (35.0-51.0); MEAN CELL VOLUME 87.2 fl (80.0-94.0); MEAN CORPUSCULAR HEMOGLOBIN 28.8 pg (27.0-31.0); MEAN CORPUSCULAR HGB CONC 33.1 g/dL (33.0-37.0); RED CELL DISTRIBUTION WIDTH 14.7 % (11.5-14.5); WHITE BLOOD COUNT 6.4 K/uL (4.8-10.8)
[2017-02-12 08:53] LABS: BLOOD UREA NITROGEN 18 mg/dl (9-20); CALCIUM 9.1 mg/dL (8.4-10.2); CARBON DIOXIDE 27 mmol/L (22-30); CHLORIDE 102 mmol/L (98-107); GFR AFRICAN-AMERICAN > 60; GLUCOSE,RANDOM 117 mg/dL (75-110); POTASSIUM 4.1 MMOL/L (3.6-5.0); SODIUM 138 mmol/l (132-148)
[2017-02-12] MEDS: Insulin Detemir 100 Units/ml Inj SC SCH ×2 (09:01→21:08)
[2017-02-12] MEDS: Pantoprazole 40 mg EC Tab PO SCH (09:02)
[2017-02-12] MEDS: Multivitamin With Minerals Tab PO SCH (09:02)
--- NOTE | 2017-02-12 12:18 | CP.PCM.PN ---
Subjective - Date & Time of Evaluation Date of Evaluation: 02/11/17 Time of Evaluation: 20:00 - Subjective Subjective: no acute complaints at present Objective - Vital Signs/Intake and Output Vital Signs (last 24 hours): Temp Pulse Resp BP Pulse Ox 97.5 F L 89 20 101/60 100 02/12/17 07:50 02/12/17 09:01 02/12/17 07:50 02/12/17 09:01 02/12/17 07:50 - Medications Medications: Current Medications Albuterol/Ipratropium (Duoneb 3 Mg/0.5 Mg (3 Ml) Ud) 3 ml IH RQ4 [facility] Last Admin: 02/12/17 11:19 Dose: 3 ml Aspirin (Ecotrin) 81 mg PO DAILY [facility] Last Admin: 02/12/17 09:01 Dose: 81 mg Atorvastatin Calcium (Lipitor) 80 mg PO HS [facility] Last Admin: 02/11/17 21:28 Dose: 80 mg Bisacodyl (Dulcolax) 10 mg RC DAILY PRN PRN Reason: Constipation Clopidogrel Bisulfate (Plavix) 75 mg PO DAILY [facility] Last Admin: 02/12/17 09:02 Dose: 75 mg Docusate Sodium (Colace) 100 mg PO BID [facility] Last Admin: 02/12/17 09:00 Dose: 100 mg Heparin Sodium (Porcine) (Heparin) 5,000 units SC Q8 [facility] PRN Reason: Protocol Last Admin: 02/12/17 06:03 Dose: 5,000 units Insulin Detemir (Levemir) 15 units SC Q12 [facility] Last Admin: 02/12/17 09:01 Dose: 15 units Insulin Human Lispro (Humalog) 0 units SC 0630,2100 [facility] PRN Reason: Protocol Last Admin: 02/12/17 06:05 Dose: Not Given Metoprolol Tartrate (Lopressor) 25 mg PO Q12 [facility] Last Admin: 02/12/17 09:01 Dose: Not Given Multivitamins/Minerals (Therapeutic-M Tab) 1 tab PO DAILY [facility] Last Admin: 02/12/17 09:02 Dose: 1 tab Pantoprazole Sodium (Protonix Ec Tab) 40 mg PO DAILY [facility] Last Admin: 02/12/17 09:02 Dose: 40 mg - Labs Labs: 02/12/17 05:30 02/12/17 05:30 - Head Exam Head Exam: ATRAUMATIC, NORMAL INSPECTION, NORMOCEPHALIC - Eye Exam Eye Exam: EOMI, Normal appearance Pupil Exam: NORMAL ACCOMODATION, PERRL - ENT Exam ENT Exam: Mucous Membranes Moist, Normal Exam - Neck Exam Neck Exam: Normal Inspection - Respiratory Exam Respiratory Exam: Clear to Ausculation Bilateral, NORMAL BREATHING PATTERN - Cardiovascular Exam Cardiovascular Exam: REGULAR RHYTHM - GI/Abdominal Exam GI & Abdominal Exam: Normal Bowel Sounds - Rectal Exam Rectal Exam: NORMAL INSPECTION - Exam External exam: NORMAL EXTERNAL EXAM - Extremities Exam Extremities Exam: Full ROM, Normal Capillary Refill, Normal Inspection - Back Exam Back Exam: NORMAL INSPECTION - Neurological Exam Neurological Exam: Alert, Awake Neuro motor strength exam: Left Upper Extremity: 3, Right Upper Extremity: 4, Left Lower Extremity: 3, Right Lower Extremity: 4 Additional comments: incisional area of leg healing - Psychiatric Exam Psychiatric exam: Normal Affect, Normal Mood - Skin Skin Exam: Dry, Normal Color Assessment and Plan (1) CAD (coronary artery disease) Status: Acute (2) DM2 (diabetes mellitus, type 2) Status: Acute (3) DVT prophylaxis Status: Acute (4) HTN (hypertension) Status: Acute (5) S/P CABG (coronary artery bypass graft) Assessment & Plan: plan to continue with physical, occupational, rec and speech therapy Monitor the incisional area of the legs Monitor pain Status: Acute (6) Chest pain Status: Acute (7) Hypertension, uncontrolled Status: Acute (8) Non-ST elevation [place] (NSTEMI) Status: Acute
[2017-02-13] MEDS: Albuterol-Ipratrop 3 mg / 0.5 (3 ml) UD IH SCH ×6 (04:48→23:57)
[2017-02-13] MEDS: Insulin Lispro (humaLOG) 100 Units/ml Inj SC SCH ×2 (06:53→21:34)
[2017-02-13] MEDS: Multivitamin With Minerals Tab PO SCH (08:40)
[2017-02-13] MEDS: Insulin Detemir 100 Units/ml Inj SC SCH ×2 (08:40→21:35)
[2017-02-13] MEDS: Pantoprazole 40 mg EC Tab PO SCH (08:40)
[2017-02-13 20:10] VITALS: RESP 20
[2017-02-14] MEDS: Albuterol-Ipratrop 3 mg / 0.5 (3 ml) UD IH SCH ×6 (04:27→23:05)
[2017-02-14] MEDS: Insulin Lispro (humaLOG) 100 Units/ml Inj SC SCH ×2 (06:54→22:06)
[2017-02-14] MEDS: Multivitamin With Minerals Tab PO SCH (08:24)
[2017-02-14] MEDS: Pantoprazole 40 mg EC Tab PO SCH (08:24)
[2017-02-14] MEDS: Insulin Detemir 100 Units/ml Inj SC SCH ×2 (08:26→22:05)
[2017-02-14 10:03] VITALS: O2SAT 100
[2017-02-14] MEDS ORDERED: Pneumococcal 23-Valent Vaccine IM ONE (10:43)
[2017-02-14] MEDS ORDERED: Influenza Vaccine 18yr & older 0.5 ML/45 MCG SYR IM ONE (10:43)
[2017-02-14 20:53] VITALS: TEMP 97.3
[2017-02-15] MEDS: Albuterol-Ipratrop 3 mg / 0.5 (3 ml) UD IH SCH ×2 (04:31→08:10)
[2017-02-15] MEDS: Insulin Lispro (humaLOG) 100 Units/ml Inj SC SCH (06:12)
[2017-02-15] MEDS: Multivitamin With Minerals Tab PO SCH (08:21)
[2017-02-15] MEDS: Pantoprazole 40 mg EC Tab PO SCH (08:22)
[2017-02-15 08:23] VITALS: BP 100/65
[2017-02-15] MEDS: Insulin Detemir 100 Units/ml Inj SC SCH (08:23)
[2017-02-15 11:19] VITALS: PULSE 98
--- NOTE | 2017-02-15 13:36 | PN ---
DATE: 02/15/2017 PHYSIATRY PROGRESS NOTE Note dated for 9:00 a.m., date is 02/15/2017. SUBJECTIVE: The patient is feeling fine. No acute complaints at present. PHYSICAL EXAMINATION: VITAL SIGNS: Vitals are stable. NECK: Supple. CHEST: Symmetrical. HEART: Sounds S1 and S2. ABDOMEN: Abdominal area is benign. EXTREMITIES: No clubbing, cyanosis or edema. IMPRESSION: For the patient is the patient with generalized weakness, gait difficulty, deconditioning. PLAN: The patient plan for physical and occupational therapy. Full range of motion, strengthening, transfers, ambulation and gait training. The patient for discharge today. Further services after discharge. The patient to have the medications ordered for the patient. Follow up with the medical physicians after discharge. The patient's diagnosis was acute CVA, hypertension, NSTEMI, gait difficulty, status post intubation, generalized weakness, status post CABG, status post savanna. The patient also to follow up with a surgeon for removal of the savanna in the leg. The patient for discharge today. James Pierre MD
--- NOTE | 2017-02-15 14:52 | CP.PCM.DIS ---
Provider - Provider Date of Admission: 02/03/17 20:29 Attending physician: Theresa Gray MD Primary care physician: none Consults: PT/OT Time Spent in preparation of Discharge (in minutes): 10 Hospital Course - Lab Results Lab Results: Most Recent Lab Values WBC 6.4 K/uL (4.8-10.8) 02/12/17 05:30 RBC 4.06 Mil/uL (4.40-5.90) L 02/12/17 05:30 Hgb 11.7 g/dL (12.0-18.0) L 02/12/17 05:30 Hct 35.4 % (35.0-51.0) 02/12/17 05:30 MCV 87.2 fl (80.0-94.0) 02/12/17 05:30 MCH 28.8 pg (27.0-31.0) 02/12/17 05:30 MCHC 33.1 g/dL (33.0-37.0) 02/12/17 05:30 RDW 14.7 % (11.5-14.5) H 02/12/17 05:30 Plt Count 337 K/uL (130-400) 02/12/17 05:30 Sodium 138 mmol/l (132-148) 02/12/17 05:30 Potassium 4.1 MMOL/L (3.6-5.0) 02/12/17 05:30 Chloride 102 mmol/L (98-107) 02/12/17 05:30 Carbon Dioxide 27 mmol/L (22-30) 02/12/17 05:30 Anion Gap 13 (10-20) 02/12/17 05:30 BUN 18 mg/dl (9-20) 02/12/17 05:30 Creatinine 0.8 mg/dl (0.8-1.5) 02/12/17 05:30 Est GFR ( Amer) > 60 02/12/17 05:30 Est GFR (Non-Af Amer) > 60 02/12/17 05:30 POC Glucose (mg/dL) 131 mg/dL (65-110) H 02/15/17 06:07 Random Glucose 117 mg/dL (75-110) H 02/12/17 05:30 Calcium 9.1 mg/dL (8.4-10.2) 02/12/17 05:30 - Hospital Course Hospital Course: 51 y/o male admitted for rehab s/p NSTEMI and CABG, and R CVA.Patient participated well with PT . Will discharge home today Patient to follow up with his cardiothoracic surgeon 1. CAD/NSTEMI/s/p CABG stable Continue ASA, Plavix,metoprolol Continue Statin at 80 mg daily for 21 days total, then switch to 40 mg discontinued Amiodarone as per recommendations by CTS 2. HTN Metoprolol as above 3. DM2 DM diet Accucheck qid ACHS Levemir 15 units SQ BID SSI 4. CVA continue PT/OT ASa, statin, BP control 5. DVT PPx SQ heparin 6. GI PPx protonix Discharge Exam - Head Exam Head Exam: ATRAUMATIC, NORMAL INSPECTION, NORMOCEPHALIC - Eye Exam Eye Exam: PERRL Pupil Exam: NORMAL ACCOMODATION - ENT Exam ENT Exam: Mucous Membranes Moist, Normal Exam - Neck Exam Neck exam: Full Rom, Normal Inspection - Respiratory Exam Respiratory Exam: Clear to PA & Lateral, NORMAL BREATHING PATTERN. absent: Rales, Rhonchi, Wheezes - Cardiovascular Exam Cardiovascular Exam: REGULAR RHYTHM, RRR, +S1, +S2. absent: JVD - GI/Abdominal Exam GI & Abdominal Exam: Normal Bowel Sounds, Soft. absent: Distended, Guarding, Rebound, Tenderness - Rectal Exam Rectal Exam: Deferred - Extremities Exam Extremities exam: normal capillary refill, normal inspection, pedal pulses present - Back Exam Back exam: NORMAL INSPECTION - Neurological Exam Neurological exam: Alert, CN II-XII Intact, Oriented x3, Reflexes Normal - Psychiatric Exam Psychiatric exam: Normal Affect, Normal Mood - Skin Skin Exam: Dry, Intact, Normal Color, Warm Discharge Plan - Discharge Medications Prescriptions: Albuterol/Ipratropium [Duoneb 3 mg/0.5 mg (3 ml) UD] 3 ml IH Q4 #30 neb Aspirin [Ecotrin] 81 mg PO DAILY #30 tabec Atorvastatin [Lipitor] 80 mg PO HS #30 tab Bisacodyl [Dulcolax] 10 mg RC DAILY PRN #30 supp.rect PRN Reason: Constipation Clopidogrel [Plavix] 75 mg PO DAILY #30 tab Docusate [Colace] 100 mg PO BID #60 cap Glimepiride [Amaryl] 4 mg PO DAILY #30 tablet Metoprolol Tartrate [Lopressor] 25 mg PO Q12 #60 tab Multivitamin [Daily Lkaeshia] 1 tab PO DAILY #30 tablet - Follow Up Plan Condition: GOOD Disposition: HOME/ ROUTINE Patient education suggested?: Yes Instructions: Metoprolol (By mouth), Aspirin (By mouth), Laxative, Stool Softeners (By mouth), Multivitamins, Adult Formula (By mouth), Glimepiride (By mouth), Atorvastatin (By mouth), Ipratropium/Albuterol (By breathing), Clopidogrel (By mouth), Laxatives, Stimulant (Suppository) (Into the rectum), Diabetes Mellitus Type 2 in Adults (DC), Stroke (DC), Coronary Artery Bypass Graft (DC) Additional Instructions: FOLLOW UP WITH PCP AND NEUROLOGY IN ONE WEEK. RETURN TO ER IF CONDITION WORSENS.
== END 2017-02-15 10:30 | disposition home or self-care (01) | DRG 949 ==
PROVIDERS: ADMIT Internal Medicine; ATTEND Internal Medicine
PROC: F07Z9FZ Gait Training/Functional Ambulation Treatment using Assistive, Adaptive, Supportive or Protective Equipment (ICD-10-PCS; principal; 2017-02-04)
PROC: F07M6FZ Therapeutic Exercise Treatment of Musculoskeletal System - Whole Body using Assistive, Adaptive, Supportive or Protective Equipment (ICD-10-PCS; 2017-02-04)
PROC: F08Z4FZ Home Management Treatment using Assistive, Adaptive, Supportive or Protective Equipment (ICD-10-PCS; 2017-02-04)
PROC: 3E0234Z Introduction of Serum, Toxoid and Vaccine into Muscle, Percutaneous Approach (ICD-10-PCS; 2017-02-14)
DX: Z48.812 Encounter for surgical aftercare following surgery on the circulatory system (principal); I21.19 ST elevation (STEMI) myocardial infarction involving other coronary artery of inferior wall; I69.354 Hemiplegia and hemiparesis following cerebral infarction affecting left non-dominant side; E11.9 Type 2 diabetes mellitus without complications; Z95.1 Presence of aortocoronary bypass graft; I25.10 Atherosclerotic heart disease of native coronary artery without angina pectoris; I25.2 Old myocardial infarction; E78.00 Pure hypercholesterolemia, unspecified; E78.5 Hyperlipidemia, unspecified; I10 Essential (primary) hypertension; Z79.4 Long term (current) use of insulin; Z80.0 Family history of malignant neoplasm of digestive organs; Z82.49 Family history of ischemic heart disease and other diseases of the circulatory system; Z87.891 Personal history of nicotine dependence; R26.81 Unsteadiness on feet; I69.328 Other speech and language deficits following cerebral infarction; Z23 Encounter for immunization